=== PATIENT | female | born 1990 | race Two or more races ===

== ENCOUNTER 2019-05-25 17:15 | Emergency (ER) | payer MEDICAID ==
[~2019-05-25] VITALS: Ht 149.9 cm; Wt 49.4 kg
[2019-05-25 18:43] LABS: Basophils # (auto) 0 uL; Basophils % (auto) 0.3 % (0.0-2.0); Eosinophils # (auto) 0.1 uL; Hemoglobin 9.4 g/dL (12.2-16.2); Mean Corpuscular Volume 74.6 fL (80.0-100.0); Nucleated Red Blood Cells % 0.1 %
[2019-05-25 18:47] LABS: Hematocrit 28.7 % (36.0-46.0); Lymphocytes # (auto) 2.1 uL; Lymphocytes % (auto) 25.8 % (10.0-50.0); Mean Corpuscular Hemoglobin 24.6 pg (28.0-32.0); Mean Corpuscular Hgb Conc. 32.9 g/dL (32.0-36.0); Monocytes # (auto) 0.6 uL; Monocytes % (auto) 7.6 % (0.0-12.0); Neutrophils # (auto) 5.2 uL; Neutrophils % (auto) 65.3 % (37.0-80.0); Platelet Count (auto) 169 10^3/uL (140-450); Red Blood Cells 3.84 10^6/uL (4.0-5.20); Red Cell Distribution Width 18.8 % (11.8-14.3)
[2019-05-25 18:57] LABS: Potassium 3.9 mmol/L (3.5-5.1)
[2019-05-25 19:04] LABS: Albumin 3.7 g/dL (3.4-5.0); BUN/Creatinine Ratio 26.4; Bilirubin, Total 0.3 mg/dL (0.2-1.0); Calcium 8.4 mg/dL (8.5-10.1); Total Protein 7.4 g/dL (6.4-8.2)
[2019-05-25 19:30] LABS: Urine Bacteria FEW /hpf (None Seen); Urine Blood Negative /uL (Negative); Urine Hyaline Cast FEW /lpf (0 - 2); Urine Specific Gravity 1.027 (1.001-1.035); Urine WBC 22 /hpf (0 - 5)
[2019-05-25 22:02] VITALS: BP 115/70
== END 2019-05-25 23:06 | disposition home or self-care (01) ==
LOC: ER 17:44
DX: O21.8 Other vomiting complicating pregnancy (principal); Z3A.01 Less than 8 weeks gestation of pregnancy
CPT/HCPCS: 36415; 76801; 80053; 81001; 81025; 84702; 85025

== ENCOUNTER 2020-01-10 11:35 | Inpatient (IN) | payer MEDICAID ==
[~2020-01-10] VITALS: Ht 149.9 cm; Wt 66.7 kg
[2020-01-10] MEDS: LACTATED RINGER'S 1,000 ML IV SCH ×2 (12:01→23:27)
[2020-01-10] MEDS ORDERED: SODIUM CHLORIDE 0.9% 1,000 ML IV SCH (12:01)
[2020-01-10] MEDS ORDERED: LACT. RINGERS/OXYTOCIN 20UNITS 1,000 ML IV SCH ×2 (12:01→16:27)
[2020-01-10] MEDS ORDERED: PHISODERM TOP SOLN 240ML BTL TOP PRN (12:15)
[2020-01-10] MEDS ORDERED: WITCH HAZEL-GLYCERIN PAD TOP PRN (12:15)
[2020-01-10] MEDS ORDERED: DERMOPLAST 60ML BOTTLE TOP PRN (12:15)
[2020-01-10] MEDS ORDERED: hydrALAZINE HCL 20 MG/ML VL IV ONE (12:15)
[2020-01-10] MEDS ORDERED: LIDOCAINE 2%HCL (LOCAL ANESTH.) INJ 20ML MDV ID PRN (12:15)
[2020-01-10] MEDS ORDERED: NALBUPHINE HCL 10 MG/1ml INJECTION IM PRN (12:15)
[2020-01-10] MEDS ORDERED: NALBUPHINE HCL 10 MG/1ml INJECTION IV PRN (12:15)
[2020-01-10] MEDS ORDERED: PROMETHAZINE HCL 25 MG/ML 1ML IM ONE ×2 (12:30→14:00)
[2020-01-10] MEDS ORDERED: BUTORPHANOL TARTRATE 2 MG/1 ML VIAL IM PRN (12:30)
[2020-01-10] MEDS ORDERED: hydrALAZINE HCL 20 MG/ML VL ONE (12:31)
[2020-01-10] MEDS: hydrALAZINE HCL 20 MG/ML VL IV PRN ×3 (12:34→21:01)
[2020-01-10 12:49] LABS: Basophils # (auto) 0 10 ^3/uL (0-0.2); Basophils % (auto) 0.6 % (0.0-2.0); Eosinophils # (auto) 0.1 10 ^3/uL (0-0.8); Eosinophils % (auto) 1.3 % (0.0-7.0); Hematocrit 33.3 % (36.0-46.0); Hemoglobin 11.1 g/dL (12.2-16.2); Lymphocytes # (auto) 1.8 10 ^3/uL (0.4-5.4); Lymphocytes % (auto) 26.2 % (10.0-50.0); Mean Corpuscular Hgb Conc. 33.2 g/dL (32.0-36.0); Mean Corpuscular Volume 84.2 fL (80.0-100.0); Monocytes # (auto) 0.6 10 ^3/uL (0-1.3); Monocytes % (auto) 9.3 % (0.0-12.0); Neutrophils # (auto) 4.2 10 ^3/uL (1.6-8.6); Neutrophils % (auto) 62.6 % (37.0-80.0); Nucleated Red Blood Cells % 0.1 %; Platelet Count (auto) 153 10^3/uL (140-450); Red Blood Cells 3.96 10^6/uL (4.0-5.20); Red Cell Distribution Width 14.6 % (11.8-14.3); White Blood Cell 6.7 10^3/uL (4.4-10.8)
[2020-01-10 13:06] LABS: INR 0.91 (0.9-1.15); Partial Thromboplastin Time 23.3 sec (23.64-32.05)
[2020-01-10 13:12] LABS: Calcium 8.6 mg/dL (8.5-10.1); Potassium 3.9 mmol/L (3.5-5.1)
[2020-01-10 13:21] LABS: Albumin 2.3 g/dL (3.4-5.0); BUN/Creatinine Ratio 15.1; Bilirubin, Total 0.4 mg/dL (0.2-1.0); Total Protein 7.1 g/dL (6.4-8.2); Uric Acid 5.7 mg/dL (2.6-6.0)
[2020-01-10] MEDS ORDERED: BUTORPHANOL TARTRATE 2 MG/1 ML VIAL IV PRN (14:15)
[2020-01-10] MEDS ORDERED: PROMETHAZINE HCL 25 MG/ML 1ML IV ONE (14:15)
[2020-01-10] MEDS ORDERED: MAGNESIUM SULFATE 40MG/ML 1,000 ML IV SCH (15:13)
[2020-01-10] MEDS ORDERED: LACTATED RINGER'S 1,000 ML IV SCH (15:13)
[2020-01-10] MEDS ORDERED: fentaNYL 200mCg/100ml W ROPIVA 100 ML EPI SCH ×3 (15:15→17:15)
[2020-01-10] MEDS ORDERED: ePHEDrine SULFATE 50 MG/ML AMP IV ONE ×2 (15:15→16:30)
[2020-01-10] MEDS ORDERED: NALOXONE HCL 0.4 MG/ML VIAL IV ONE ×2 (15:15→16:30)
[2020-01-10] MEDS ORDERED: MAGNESIUM SULFATE 100 ML IV ONE (15:15)
[2020-01-10] MEDS ORDERED: SODIUM CHLORIDE 0.9% 500 ML IV PRN (16:21)
--- NOTE | 2020-01-11 02:20 | NUR ---
Teaching: Reviewed information in [employer] booklet with patient. Discussed benefits of and risks associated with not . Discussed different positions, proper latch, feeding cues, and baby-led . Provided information of medication side effects related to . All questions and concerns addressed at this time. Patient verbalized understanding of information.
[2020-01-11] MEDS: IBUPROFEN 600 MG TAB PO PRN ×4 (03:22→22:41)
[2020-01-11] MEDS ORDERED: PREN27TA7 OR (03:59)
[2020-01-11] MEDS ORDERED: FERR-7 PO (04:01)
--- NOTE | 2020-01-11 04:45 | NUR ---
Ambulation: Patient OOB with standby assistance by RN. Patient ambulated to bathroom with steady gait. Patient unable to void at this time. [facility] teaching provided with returned demonstration by patient. Clean gown provided and bed linen changed. Patient ambulated back to bed with steady gait and no distress noted.
[2020-01-11 07:03] VITALS: BP 129/74
[2020-01-11] MEDS: ACETAMINOPHEN 325 MG TAB PO PRN ×2 (07:59→15:01)
[2020-01-11 11:23] VITALS: BP 139/82
[2020-01-11 14:33] VITALS: BP 125/79
[2020-01-11 19:00] VITALS: BP 150/85
[2020-01-11 20:45] VITALS: BP 131/88
[2020-01-11 22:37] VITALS: BP 147/74
[2020-01-12 03:15] VITALS: BP 117/74
[2020-01-12 06:24] VITALS: BP 131/83
--- NOTE | 2020-01-12 06:28 | NUR ---
See paper chart for meds given during [employer] down time from 2300 on 01/11/2020 to 0400 on 01/12/2020.
--- NOTE | 2020-01-12 10:06 | NUR ---
DR. ESPINOZA RICARDO UNIT AND SBAR GIVEN UPDATE AND READ VITALS AND MADE HIM AWARE HEALTH SERVICE COORDINATOR Bhargav RAMOS DID NOT DISCHARGE PATIENT . PER DR. ESPINOZA DISCHARGE PATIENT AND HAVE HER FOLLOW UP IN ONE WEEK. Addendum: 01/12/20 at 1316 by Cesar Armenta RN late entry add to note: per Dr. Espinoza have patient follow up in one week. Appointment made for 01/20/[address] [place] [address] Yap and for a bp check.
[2020-01-12 10:30] VITALS: BP 119/72
[2020-01-12] MEDS ORDERED: MEASLES, MUMPS & RUBELLA VAC(MMRII) 0.5ML SC ONE (11:45)
--- NOTE | 2020-01-12 12:00 | NUR ---
IV removal IV DC'd with sterile technique, catheter fully intact. Pressure dressing applied to site. Patient tolerated procedure well.
--- NOTE | 2020-01-12 12:19 | NUR ---
Discharge: Discharge instructions given as ordered. Pt encouraged to follow up with HOUSEKEEPING MANAGER as instructed. All questions and concerns addressed. Patient verbalized understanding. Medication reconciliation completed and copy given to patient. All required/requested vaccines given and copies of vaccinations mmr given to patient. Patient encouraged to prepare to depart unit. waiting for patients ride home.
--- NOTE | 2020-01-12 12:55 | NUR ---
Discharge: Patient taken to vehicle via wheelchair with all personal belongings, accompanied by staff OSCAR melendez and family member. No distress noted at time of departure, no adverse changes in status since initial assessment.
== END 2020-01-12 12:55 | disposition home or self-care (01) | DRG 560 ==
LOC: LDRP 11:35 → OBSVTOIN 12:00 → LDRP 14:30
PROVIDERS: ADMIT Specialist; ATTEND Specialist
PROC: 10E0XZZ Delivery of Products of Conception, External Approach (ICD-10-PCS; principal; 2020-01-10)
PROC: 3E0R3BZ Introduction of Anesthetic Agent into Spinal Canal, Percutaneous Approach (ICD-10-PCS; 2020-01-10)
PROC: 00HU33Z Insertion of Infusion Device into Spinal Canal, Percutaneous Approach (ICD-10-PCS; 2020-01-10)
DX: O13.4 Gestational [pregnancy-induced] hypertension without significant proteinuria, complicating childbirth (principal); Z11.59 Encounter for screening for other viral diseases; Z37.0 Single live birth; Z3A.39 39 weeks gestation of pregnancy; Z88.1 Allergy status to other antibiotic agents; Z88.0 Allergy status to penicillin
CPT/HCPCS: 36415; 51702; 59025; 59409; 62282; 80053; 81002; 84112; 84550; 85025; 85610; 85730; 86850; 86900; 86901; 94762; 96372; 96375; G0378; J2590